=== PATIENT | male | born 1965 | race African-American/Black ===

== ENCOUNTER 2019-10-12 15:08 | Emergency (ER) | payer MEDICARE, MEDICAID ==
[~2019-10-12] VITALS: Ht 188 cm; Wt 96.2 kg
[2019-10-12 15:20] VITALS: BP 123/73
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
--- NOTE | 2019-10-12 15:29 | NUR ---
ED Nurse Note: pt went on CT accompanied by tech.
[2019-10-12] MEDS ORDERED: Tetanus/Diptheria/Pertussis IM ONE (15:30)
[2019-10-12] MEDS ORDERED: Acetaminophen 500mg (ES) tab ORAL ONE (15:30)
--- NOTE | 2019-10-12 15:54 | NUR ---
ED Nurse Note: offered snacks to pt.
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
[2019-10-12] MEDS ORDERED: ACETAMINOPHEN325 M1 ORAL (16:06)
[2019-10-12 16:21] VITALS: BP 123/73
--- NOTE | 2019-10-12 16:21 | NUR ---
ER DISCHARGE NOTE: Patient is cleared to be discharged per ERMD, pt is aox3, on room air, with stable vital signs. pt was given dc and prescription instructions, pt was able to verbalize understanding, pt id band removed. pt is able to ambulate with steady gait. pt took all belongings.
== END 2019-10-12 16:21 | disposition home or self-care (01) ==
LOC: EDBD 15:08 → EMR 15:27
DX: S06.9X2A Unspecified intracranial injury with loss of consciousness of 31 minutes to 59 minutes, initial encounter (principal); S00.83XA Contusion of other part of head, initial encounter; Y04.2XXA Assault by strike against or bumped into by another person, initial encounter; Y92.9 Unspecified place or not applicable; I10 Essential (primary) hypertension; Z23 Encounter for immunization
CPT/HCPCS: 70450; 70486; 90471; 90715; 99284